=== PATIENT | female | born 2000 | race Two or more races ===

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

== ENCOUNTER 2025-08-19 15:43 | Outpatient (CLI) | payer OTHER | END 2025-08-19 15:44 | disposition home or self-care (01) | LOC: BURRAD 15:43 | PROVIDERS: ATTEND Nurse Practitioner Family | DX: M79.672 Pain in left foot (principal) ==